=== PATIENT | male | born 1995 | race Caucasian/White ===

== ENCOUNTER 2019-01-23 06:12 | Emergency (ER) | payer SELFPAY ==
[~2019-01-23] VITALS: Ht 190.5 cm; Wt 93.2 kg
[2019-01-23 06:20] VITALS: Ht 190.5 cm; Wt 93.2 kg
[2019-01-23 06:49] LABS: BASOPHILS 0.2 % (0-2); EOSINOPHILS 4.3 % (0-7); HEMATOCRIT 43.8 % (42.0-54.0); HEMOGLOBIN 15.2 g/dL (13.5-17.5); IMMATURE GRANULOCYTES 0.2 % (0-5); LYMPHOCYTES 35.5 % (15-50); MCH 30.3 pg (26.0-34.0); MCHC 34.7 g/dL (31.0-37.0); MCV 87.3 fL (80.0-100.0); MEAN PLATELET VOLUME 10.2 fL (7.4-10.4); MONOCYTES 9.7 % (2-11); NEUTROPHILS 50.1 % (40-80); PLATELET COUNT 240 10x3/uL (130-400); RBC 5.02 10x6/uL (4.20-6.10); RDW 12.1 % (11.5-14.5); WBC 4.6 10x3/uL (4.8-10.8)
[2019-01-23 07:26] LABS: CALC OSMOLALITY 286 mosm/kg (275-300); CALCIUM 9.2 mg/dL (8.5-10.1); CARBON DIOXIDE 30.2 mmol/L (21.0-32.0); CHLORIDE - SERUM 104 mmol/L (98-107); CREATININE - SERUM 0.9 mg/dL (0.6-1.3); GLUCOSE 88 mg/dL (74-106); POTASSIUM - SERUM 3.7 mmol/L (3.5-5.1); SODIUM 144 mmol/L (136-145); UREA NITROGEN 14 mg/dL (7-18); eGFR NON AFRICAN AMERICAN > 90 mL/min (90-120)
[2019-01-23 07:45] LABS: ALBUMIN 4.4 g/dL (3.4-5.0); ALKALINE PHOSPHATASE 94 U/L (46-116); ALT (SGPT) 36 U/L (10-68); BILIRUBIN - TOTAL 0.58 mg/dL (0.2-1.3); LIPASE 155 U/L (73-393); MAGNESIUM - SERUM 2.2 mg/dL (1.8-2.4); PRO BNP 45 pg/mL (0-125); PROTEIN - SERUM 7.7 g/dL (6.4-8.2); THYROID STIMULATING HORMONE 4.05 uIU/mL (0.36-3.74); TROPONIN-I < 0.017 ng/mL (0.000-0.060)
[2019-01-23 07:59] LABS: C-REACTIVE PROTEIN 1.2 mg/dL (0.0-0.9)
[2019-01-23 08:26] VITALS: BP 142/82
== END 2019-01-23 08:28 | disposition home or self-care (01) ==
LOC: D.ER 06:12
PROVIDERS: Family Medicine
DX: R55 Syncope and collapse (principal); B33.8 Other specified viral diseases; R94.6 Abnormal results of thyroid function studies

== ENCOUNTER 2019-02-25 15:41 | Emergency (ER) | payer SELFPAY ==
[~2019-02-25] VITALS: Ht 190.5 cm; Wt 90.9 kg
[2019-02-25 16:07] VITALS: BP 123/85; Ht 190.5 cm; Wt 90.9 kg
[2019-02-25] MEDS ORDERED: KEFLEX500 MG PO (18:51)
== END 2019-02-25 19:06 | disposition home or self-care (01) ==
LOC: D.ER 15:41
DX: L03.90 Cellulitis, unspecified (principal); S90.121A Contusion of right lesser toe(s) without damage to nail, initial encounter; W20.8XXA Other cause of strike by thrown, projected or falling object, initial encounter; Y93.9 Activity, unspecified; Y92.9 Unspecified place or not applicable